=== PATIENT | female | born 1975 | race Caucasian/White ===

== ENCOUNTER 2021-02-12 18:19 | Emergency (ER) | payer OTHER ==
[~2021-02-12] VITALS: Ht 175.3 cm; Wt 106.1 kg
[2021-02-12 19:14] VITALS: BP 151/96
--- NOTE | 2021-02-12 19:22 | NUR ---
45 YO/F BIB SELF W C/O PELVIC PAIN RADIATING TO LOWER BACK X3 DAYS WORSENING TODAY 8/10 PRESSURE LIKE W [facility]ARP EPISODES, CONSTANT. PATIENT ALSO REPORTS URINARY RETENTION, AND DYSURIA, +NAUSEA. PATIENT DENIES ANY FEVER, VOMITING, DIARRHEA, OR CONSTIPATION. BOWEL SOUNDS PRESENT, ABDOMEN SOFT NON-TENDER, PELVIC AREA TENDER TO TOUCH. PATIENT TOOK MOTRIN 400MG TOTAL AT 1600. PATIENT LAYING IN BED LOCKED INLOWEST POSITION W X1 SIDERAIL UP. VSS. BREATHING EVEN AND UNLABORED. NAD NOTED, WILL CONTINUE TO MONITOR. PMH:DENIES NKA
[2021-02-12] MEDS ORDERED: KETOROLAC 30 MG/ML VIAL IM ONE ×2 (19:40→21:35)
[2021-02-12 21:20] LABS: APPEARANCE,URINE CLEAR (CLEAR); BILIRUBIN,URINE NEGATIVE (NEGATIVE); BLOOD, URINE 2+ (NEGATIVE); COLOR,URINE YELLOW (YELLOW); LEUKOCYTE ESTERASE ,URINE NEGATIVE (NEGATIVE); NITRITE, URINE NEGATIVE (NEGATIVE); UGLUCOSE NEGATIVE (NEGATIVE)
--- NOTE | 2021-02-12 21:30 | NUR ---
Dr. Yadav examining patient.
--- NOTE | 2021-02-12 21:32 | NUR ---
ERMD AT BEDSIDE FOR CONTINUITY OF PATIENT CARE.
[2021-02-12 21:40] LABS: WBC,URINE 0-5 /HPF (0-5)
[2021-02-12] MEDS ORDERED: MAGN296S PO (21:44)
[2021-02-12 22:03] VITALS: BP 121/75
--- NOTE | 2021-02-12 22:03 | NUR ---
Patient discharged with v/s stable. Written and verbal after care instructions given and explained. Patient alert, oriented and verbalized understanding of instructions. Ambulatory with steady gait. All questions addressed prior to discharge. ID band removed. Patient advised to follow up with PMD. Rx of magnesium citrate given. Patient educated on indication of medication including possible reaction and side effects. Opportunity to ask questions provided and answered.
== END 2021-02-12 22:03 | disposition home or self-care (01) ==
LOC: MED 18:19
DX: K59.00 Constipation, unspecified (principal); R11.0 Nausea; R35.0 Frequency of micturition; F12.90 Cannabis use, unspecified, uncomplicated; Z79.899 Other long term (current) drug therapy
CPT/HCPCS: 74022; 81001; 81025; 96372; 99284; J1885

== ENCOUNTER 2022-04-02 08:32 | Emergency (ER) | payer OTHER ==
[~2022-04-02] VITALS: Ht 172.7 cm; Wt 105.2 kg
[~2022-04-02 08:32] MED LIST: MAGN296S PO
[2022-04-02 09:14] VITALS: BP 149/74
--- NOTE | 2022-04-02 09:20 | NUR ---
PT RECEIVED, CARE ASSUMED. PT PRESENTS SELF TO ER WITH C/O COUGH, RUNNING NOSE AND BODY ACHES. AWAITING TO BE SEEN BY
--- NOTE | 2022-04-02 09:22 | NUR ---
FLU, RSV, COVID SWABS DONE.
--- NOTE | 2022-04-02 09:25 | NUR ---
PT AMB TO BED 4. Addendum: 04/02/22 at 0929 by MARY ST[facility]KE [facility] REPORTED TO ANURADHA LLAMAS.
[2022-04-02] MEDS ORDERED: KETOROLAC 30 MG/ML VIAL IM ONE (10:05)
[2022-04-02 10:55] LABS: RSV Negative (NEGATIVE)
[2022-04-02] MEDS ORDERED: NAPR-54 PO (11:06)
[2022-04-02] MEDS ORDERED: AZIT250T4 PO (11:06)
[2022-04-02] MEDS ORDERED: ROBAC PO (11:06)
[2022-04-02 11:20] VITALS: BP 117/81
--- NOTE | 2022-04-02 11:21 | NUR ---
Patient discharged with v/s stable. Written and verbal after care instructions ABOUT ACUTE BRONCHITIS given and explained. Patient alert, oriented and verbalized understanding of instructions. Ambulatory with steady gait. All questions addressed prior to discharge. ID band removed. Patient advised to follow up with PMD. Rx of ZITHROMAX Z PACK, NAPROXEN, GUAIFENESIN-CODEINE SYRUP given. Patient educated on indication of medication including possible reaction and side effects. Opportunity to ask questions provided and answered.
== END 2022-04-02 11:21 | disposition home or self-care (01) ==
LOC: MED 08:32
DX: J18.9 Pneumonia, unspecified organism (principal); Z20.822 Contact with and (suspected) exposure to COVID-19
CPT/HCPCS: 71045; 87420; 87426; 87804; 93005; 99285; J1885; Q0092

== ENCOUNTER 2023-11-06 22:48 | Emergency (ER) | payer BC, OTHER ==
[~2023-11-06] VITALS: Ht 172.7 cm; Wt 95.3 kg
[~2023-11-06 22:48] MED LIST changes: +AZIT250T4 PO; -MAGN296S PO; +MAGN296S68 PO; +NAPR-337 PO; +ROBAC PO
[2023-11-06 22:55] VITALS: BP 148/88; PULSE 93; RESP 18; TEMP 98.2; O2SAT 98
[2023-11-06] MEDS: BACITRACIN OINT 500 UNITS/GM PKT TP ONE (23:36)
[2023-11-06] MEDS: LIDOCAINE MPF 1% 10 MG/ML VIAL INJ ONE (23:36)
[2023-11-06] MEDS: ACETAMINOPHEN 325 MG TAB PO ONE (23:37)
[2023-11-07] MEDS ORDERED: MORPHINE SULFATE 4 MG/ML SYR ONE (01:11)
[2023-11-07] MEDS ORDERED: BACI-418 TP (01:15)
[2023-11-07] MEDS ORDERED: IBUP-2213 PO (01:15)
[2023-11-07] MEDS ORDERED: HYDR-5080 PO (01:15)
[2023-11-07 01:38] VITALS: BP 148/88; PULSE 93; RESP 18; TEMP 98.2; O2SAT 98
== END 2023-11-07 01:38 | disposition home or self-care (01) ==
LOC: MED 22:48
DX: S91.311A Laceration without foreign body, right foot, initial encounter (principal); Z98.890 Other specified postprocedural states; Z79.1 Long term (current) use of non-steroidal anti-inflammatories (NSAID); Z79.2 Long term (current) use of antibiotics; Z79.899 Other long term (current) drug therapy; W25.XXXA Contact with sharp glass, initial encounter; Y93.89 Activity, other specified; Y92.89 Other specified places as the place of occurrence of the external cause; Y99.8 Other external cause status
CPT/HCPCS: 12002; 73630; 90471; 90715; 99283; J2001; J2270; Q0092